=== PATIENT | female | born 2000 | race Caucasian/White ===

== ENCOUNTER 2018-03-25 18:31 | Emergency (ER) | payer MEDICAID ==
[2018-03-25 18:36] VITALS: BP 136/77; PULSE 65; RESP 16; TEMP 97.4; O2SAT 100
[2018-03-25 18:49] VITALS: PULSE 70; RESP 16; TEMP 98.9; O2SAT 98
[2018-03-25] MEDS ORDERED: SODIUM CHLOR 0.9% 1000 ML INJ 1,000 ML IV SCH (19:19)
--- NOTE | 2018-03-25 19:26 | PD ---
HPI Chief Complaint: [facility] Problem/Complaint Time Seen by Provider: 19:07 Travel History International Travel<30 days: No Contact w/Intl Traveler<30days: No Traveled to known affect area: No History of Present Illness HPI Patient is a 18 year old female presents to the ER for evaluation of generalized abdominal pain, n/v/d all of which had fairly abrupt onset this morning. Patient cannot think of any other inciting factors but thinks that it is her IUD which has been in place for 6 months is causing all of the pain. Denies fevers, endorses some mild congestion, denies vb/vd. States nb/nb emesis. No melena, no brbpr. no dysuria. Symptoms severe, whole abdomen, duration associated s/s and context as above. PFSH Past Medical History Medical History: Denies Significant Hx Influenza Vaccination: No ?: Unknown LMP: MIRENA Past Surgical History Surgical History: No Previous Surgery Social History Alcohol Use: No Tobacco Use: Yes Substance Use: No Allergies-Medications (Allergen,Severity, Reaction): Coded Allergies: acetaminophen (Verified Allergy, Unknown, Swelling, 03/25/18) ibuprofen (Verified Allergy, Unknown, Swelling, 03/25/18) Reported Meds & Prescriptions Reported Meds & Active Scripts Active Keflex (Cephalexin) 500 Mg Cap 500 Mg PO Q6H 5 Days Zofran Odt (Ondansetron Odt) 4 Mg Tab 4 Mg SL Q6HR PRN Review of Systems Except as stated in HPI: all other systems reviewed are Neg Physical Exam Narrative GENERAL: Well-developed well-nourished, appears uncomfortable SKIN: Focused skin assessment warm/dry. HEAD: Atraumatic. Normocephalic. EYES: Pupils equal and round. No scleral icterus. No injection or drainage. ENT: No nasal bleeding or discharge. Mucous membranes pink and moist. NECK: Trachea midline. No JVD. CARDIOVASCULAR: Regular rate and rhythm. No murmur appreciated. RESPIRATORY: No accessory muscle use. Clear to auscultation. Breath sounds equal bilaterally. GASTROINTESTINAL: Abdomen soft, non-tender, nondistended. Hepatic and splenic margins not palpable. GENITOURINARY: Exam performed with female nurse branch office administrator present all times, there is minimal bilateral adnexal tenderness with no midline bimanual tenderness, no cervical motion tenderness. There is no lesion no discharge. MUSCULOSKELETAL: No obvious deformities. No clubbing. No cyanosis. No edema. NEUROLOGICAL: Awake and alert. No obvious cranial nerve deficits. Motor grossly within normal limits. Normal speech. PSYCHIATRIC: Appropriate mood and affect; insight and judgment normal. Data Data Last Documented VS Vital Signs Date Time Temp Pulse Resp B/P (MAP) Pulse Ox O2 Delivery O2 Flow Rate FiO2 03/25/18 21:21 03/25/18 20:35 61 16 99 Room Air 03/25/18 18:49 98.9 Orders Orders Urinalysis - C+S If Indicated (03/25/18 19:07) Ed Urine Pregnancytest Poc (03/25/18 19:07) Complete Blood Count With Diff (03/25/18 19:19) Comprehensive Metabolic Panel (03/25/18 19:19) Lipase (03/25/18 19:19) Iv Access Insert/Monitor (03/25/18 19:19) Ecg Monitoring (03/25/18 19:19) Oximetry (03/25/18 19:19) Sodium Chlor 0.9% 1000 Ml Inj (Ns 1000 M (03/25/18 19:19) Sodium Chloride 0.9% Flush (Ns Flush) (03/25/18 19:30) Morphine Inj (Morphine Inj) (03/25/18 19:30) Ondansetron Odt (Zofran Odt) (03/25/18 19:30) Wet Prep Profile (03/25/18 19:19) Gc And Chlamydia Pcr (03/25/18 19:19) Ct Abd/Pel W Iv Contrast(Rout) (03/25/18 ) Iohexol 350 Inj (Omnipaque 350 Inj) (03/25/18 20:12) Urine Culture (03/25/18 19:50) Morphine Inj (Morphine Inj) (03/26/18 00:00) Us Pelvis Comp W Doppler (03/26/18 ) Ed Discharge Order (03/26/18 02:18) Labs Laboratory Tests Test 03/25/18 19:50 03/25/18 23:50 White Blood Count 10.3 TH/MM3 Red Blood Count 5.22 MIL/MM3 Hemoglobin 16.0 GM/DL Hematocrit 46.7 % Mean Corpuscular Volume 89.5 FL Mean Corpuscular Hemoglobin 30.7 PG Mean Corpuscular Hemoglobin Concent 34.3 % Red Cell Distribution Width 13.7 % Platelet Count 143 TH/MM3 Mean Platelet Volume 10.9 FL Neutrophils (%) (Auto) 90.2 % Lymphocytes (%) (Auto) 4.3 % Monocytes (%) (Auto) 5.0 % Eosinophils (%) (Auto) 0.1 % Basophils (%) (Auto) 0.4 % Neutrophils # (Auto) 9.3 TH/MM3 Lymphocytes # (Auto) 0.4 TH/MM3 Monocytes # (Auto) 0.5 TH/MM3 Eosinophils # (Auto) 0.0 TH/MM3 Basophils # (Auto) 0.0 TH/MM3 CBC Comment DIFF FINAL Differential Comment Urine Color YELLOW Urine Turbidity CLOUDY Urine pH 5.0 Urine Specific [place] 1.028 Urine Protein 30 mg/dL Urine Glucose (UA) NEG mg/dL Urine Ketones 20 mg/dL Urine Occult Blood MOD Urine Nitrite NEG Urine Bilirubin NEG Urine Urobilinogen LESS THAN 2 mg/dL Urine Leukocyte Esterase SMALL Urine RBC 3 /hpf Urine WBC 19 /hpf Urine Squamous Epithelial Cells 20 /hpf Urine Bacteria FEW /hpf Urine Mucus MANY /lpf Microscopic Urinalysis Comment CULTURE INDICATED Blood Urea Nitrogen 11 MG/DL Creatinine 0.95 MG/DL Random Glucose 132 MG/DL Total Protein 7.7 GM/DL Albumin 4.5 GM/DL Calcium Level 9.0 MG/DL Alkaline Phosphatase 63 U/L Aspartate Amino Transf (AST/SGOT) 15 U/L Alanine Aminotransferase (ALT/SGPT) 15 U/L Total Bilirubin 0.6 MG/DL Sodium Level 139 MEQ/L Potassium Level 3.5 MEQ/L Chloride Level 108 MEQ/L Carbon Dioxide Level 17.2 MEQ/L Anion Gap 14 MEQ/L Estimat Glomerular Filtration Rate 75 ML/MIN Lipase 32 U/L Clue Cells (Wet Prep) NONE SEEN Vaginal Trichomonas (Wet Prep) NONE SEEN Vaginal Yeast (Wet Prep) NONE SEEN Chlamydia trachomatis DNA (PCR) NOT DETECTED Neisseria gonorrhoeae DNA (PCR) NOT DETECTED MDM Medical Decision Making Medical Screen Exam Complete: Yes Emergency Medical Condition: Yes Differential Diagnosis UTI, TOA unlikely, torsion unlikely, appendicitis highly unlikely, endometriosis , abdominal pain not otherwise specified. Narrative Course Patient room to the emergency department, initial labs are unremarkable, CT examination unremarkable, the pelvic exam was remarkable only for minimal tenderness bilateral adnexa. Pelvic ultrasound was obtained which was negative. 2 doses of morphine later the patient is feeling much better would like to go home, discussed no obvious source of her abdominal pain is been identified, recommended antibiotics for possible UTI follow-up with an [employer] CH[employer] OPERATOR a primary care physician. Also discussed smoking cessation as smoking leads to many adverse health outcomes. She verbalized understanding and agreement. Stable for discharge Diagnosis Primary Impression: Pelvic pain in female Additional Impression: UTI (urinary tract infection) Med/Other Pt SpecificInfo: Prescription(s) given Scripts Cephalexin (Keflex) 500 Mg Cap 500 MG PO Q6H for Infection for 5 Days, #20 CAP 0 Refills Prov: Gagandeep Raza MD 03/26/18 Ondansetron Odt (Zofran Odt) 4 Mg Tab 4 MG SL Q6HR Y for Nausea/Vomiting, #20 TAB 0 Refills Prov: Gagandeep Raza MD 03/26/18 Disposition: 01 DISCHARGE HOME Condition: Stable Gagandeep Raza MD Mar 25, 2018 19:26
[2018-03-25] MEDS ORDERED: MORPHINE SULFATE 8 MG/ML INJ IV PUSH ONE (19:30)
[2018-03-25] MEDS ORDERED: ONDANSETRON ODT 4 MG TAB PO ONE (19:30)
[2018-03-25] MEDS ORDERED: SODIUM CHLORIDE 0.9% FLUSH 10 ML FLUSH IV FLUSH PRN (19:30)
[2018-03-25 19:47] VITALS: PULSE 69; RESP 16; O2SAT 98
[2018-03-25] MEDS ORDERED: IOHEXOL 350 MG/ML 10 ML VIAL (for RAD DIAG) IVCONTRAST ONE (20:12)
[2018-03-25 20:35] VITALS: BP 145/81; PULSE 61; RESP 16; O2SAT 99
--- NOTE | 2018-03-25 20:36 | RADRPT ---
EXAM DATE: 03/25/2018 8:20 PM EDT AGE/SEX: 18 years / Female INDICATIONS: Diffuse abdomen pain today. CLINICAL DATA: This is the patient's initial encounter. Patient reports that signs and symptoms have been present for 1 day and indicates a pain score of 7/10. MEDICAL/SURGICAL HISTORY: None. None. ORAL CONTRAST: No oral contrast ingested. RADIATION DOSE: 6.04 CTDI (mGy) COMPARISON: No prior exams available for comparison. TECHNIQUE: Multiple contiguous axial images were obtained through the abdomen and pelvis following b olus infusion of 94 ml Omnipaque 350 (iohexol) nonionic water-soluble contrast as a single exam dos e. No oral contrast ingested. Using automated exposure control and adjustment of the mA and/or kV ac cording to patient size, the radiation dose was kept as low as reasonably achievable to obtain optima l diagnostic quality images. FINDINGS: Lung bases are clear. No acute findings in the liver, spleen, adrenals, kidneys or pancreas. No calci fied gallstones or biliary ductal dilatation. No free fluid. No bowel obstruction. No adenopathy. Intrauterine device is present. CONCLUSION: 1. No acute findings. Intrauterine device present. Electronically signed by: Chase Garcia MD 03/25/2018 8:35 PM EDT
[2018-03-25 20:55] LABS: AUTOMATED NEUTROPHIL # 9.3 TH/MM3 (1.8-7.7); BASOPHIL % 0.4 % (0.0-2.0); EOSINOPHIL % 0.1 % (0.0-4.0); HEMATOCRIT 46.7 % (35.0-46.0); LYMPH % 4.3 % (9.0-44.0); LYMPHOCYTE # 0.4 TH/MM3 (1.0-4.8); MEAN CELL VOLUME 89.5 FL (80.0-100.0); MEAN CORPUSCULAR HEMOGLOBIN 30.7 PG (27.0-34.0); MEAN CORPUSCULAR HGB CONC 34.3 % (32.0-36.0); MEAN PLATELET VOLUME 10.9 FL (7.0-11.0); MONOCYTE # 0.5 TH/MM3 (0-0.9); NEUT % 90.2 % (16.0-70.0); PLATELET COUNT 143 TH/MM3 (150-450); RED BLOOD COUNT 5.22 MIL/MM3 (4.00-5.30); RED CELL DISTRIBUTION WIDTH 13.7 % (11.6-17.2); WHITE BLOOD COUNT 10.3 TH/MM3 (4.0-11.0)
[2018-03-25 21:13] LABS: BACTERIA, URINE FEW /hpf; BILIRUBIN, URINE NEG (NEG); BLOOD, URINE MOD (NEG); GLUCOSE,URINE NEG (NEG); KETONE, URINE 20 mg/dL (NEG); MUCUS URINE MANY /lpf (OCC); NITRITE,URINE NEG (NEG); SQUAMOUS EPITHELIAL CELL URINE 20 /hpf (0-5); URINE COLOR YELLOW (YELLW/STRAW); URINE LEUKOCYTE ESTERASE SMALL (NEG)
[2018-03-25 21:17] LABS: ALBUMIN 4.5 GM/DL (3.4-5.0); AST (GOT) 15 U/L (16-38); BICARBONATE 17.2 MEQ/L (21.0-32.0); BLOOD UREA NITROGEN 11 MG/DL (7-18); CHLORIDE 108 MEQ/L (98-107); CREATININE 0.95 MG/DL (0.50-1.00); GLOMERULAR FILTRATION RATE 75 ML/MIN (>89); GLUCOSE,RANDOM 132 MG/DL (74-106); SODIUM (NA) 139 MEQ/L (136-145)
[2018-03-25 21:18] LABS: ALT (GPT) 15 U/L (9-42)
[2018-03-25 21:20] LABS: ALKALINE PHOSPHATASE 63 U/L (45-117); TOTAL BILIRUBIN ADULT 0.6 MG/DL (0.2-1.0); TOTAL PROTEIN 7.7 GM/DL (6.4-8.2)
[2018-03-26] MEDS ORDERED: MORPHINE SULFATE 8 MG/ML INJ IV PUSH ONE
--- NOTE | 2018-03-26 01:24 | RADRPT ---
EXAM DATE: 03/26/2018 1:15 AM EDT AGE/SEX: 18 years / Female INDICATIONS: Pelvic pain x 1 day. CLINICAL DATA: This is the patient's initial encounter. Patient reports that signs and symptoms have been present for 1 day and indicates a pain score of 5/10. MEDICAL/SURGICAL HISTORY: . None. COMPARISON: No prior exams available for comparison. MEASUREMENTS: Uterus:__8.1 x 4.4 x 2.8 cm Endometrial Stripe:__5 mm Right Ovary:__ 3.3 x 2.9 x 1.4 cm Left Ovary:__ 3.5 x 3.1 x 2.0 cm FINDINGS: Uterus: The myometrium has homogeneous echotexture without mass. Intrauterine device within the end ometrium. Right Ovary: Normal flow. Normal appearance of the right ovary. Left Ovary: Normal flow. Multiple small follicles. Other: No free fluid. CONCLUSION: 1. Normal flow to the ovaries. 2. Intrauterine device in good position. Electronically signed by: Taurus Jhaveri MD 03/26/2018 1:23 AM EDT
[2018-03-26] MEDS ORDERED: ZOFR4TAB3 SL (02:19)
[2018-03-26] MEDS ORDERED: CEPH-460 PO (02:19)
== END 2018-03-26 02:36 | disposition home or self-care (01) ==
LOC: NEPE 18:31
DX: R10.2 Pelvic and perineal pain (principal); N39.0 Urinary tract infection, site not specified; Z88.6 Allergy status to analgesic agent; Z72.0 Tobacco use; Z97.5 Presence of (intrauterine) contraceptive device
CPT/HCPCS: 74177; 76856; 80053; 81001; 83690; 84703; 85025; 87086; 87210; 87491; 87591; 93975; 96374; 96375; 99284; J2270; J7030; Q9967